=== PATIENT | female | born 1995 | race Caucasian/White ===

== ENCOUNTER 2018-06-17 22:10 | Emergency (ER) | payer OTHER ==
--- OUTSIDE RECORDS SUMMARY | 2018-06-17 22:24 | XMS REPORT | Encounter Summary ---
:1995 Author Reason for Visit sore throat Instructions 1. Acute pharyngitis rapid strep group A, throat Discussion Note RTC for any other concerns Patient educational handouts: No information available. Plan of Care Patient Instructions symptomatic treatment; push fluids and ensure rest Reminders Provider Appointments None recorded. Lab Rapid Strep 05/15/2018 In-House Results Group a, Throat Referral None recorded. Procedures None recorded. Surgeries None recorded. Imaging None recorded. Medications None recorded. Medications Administered None recorded. Vitals Height Weight BMI Blood Pressure 65 in 237 lbs 9 oz 39.5 kg/m2 135/86 mm[Hg] Lab Results None recorded. Allergies Code Code System Name Reaction Severity Status Onset 027352 RxNorm Mobic Hives Moderate Active Problems Name Status Onset Date Source Flank Pain Active Encounter Procedures None recorded. Vaccine List None recorded. 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 History of Present Illness Note: pt to clinic for sore throat, headache, low grade fever x 2 days; she states noted white spots on tonsils; she has taken mucinex cold and flu Review of Systems General Adult ROS Reported By: Patient Constitutional: Constitutional: fever ENMT: Ears: no ear pain. Nose: no nose/sinus problems. Mouth/Throat: sore throat Cardiovascular: Cardiovascular: no chest pain Respiratory: Respiratory: no wheezing, no shortness of breath, cough Gastrointestinal: Gastrointestinal: no abdominal pain, no vomiting, no diarrhea Neurologic: Neurologic: frequent or severe headaches Allergic/Immunologic: Allergy/Immunologic: no runny nose, no sinus pressure Physical Exam Hyacinth Brief Adult Exam - M/F Reported By: Patient Constitutional: General Appearance: healthy-appearing, well-nourished, well-developed. Level of Distress: NAD. Ambulation: ambulating normally Psychiatric: Mental Status: active and alert ENMT: Ears: EACs clear, TMs clear. Nose: nasal passages clear. Oropharynx: moist mucous membranes, no exudates, tonsils not enlarged, erythema Neck: Lymph Nodes: cervical LAD Lungs: Auscultation: breath sounds normal Cardiovascular: Heart Auscultation: RRR, normal S1, normal S2, no murmurs Notes: no sinus tenderness
[2018-06-18 00:01] LABS: Urine Blood NEGATIVE (NEG); Urine Glucose NEGATIVE (NEG); Urine Protein NEGATIVE (NEG); Urine pH 5.5 (5.0-7.0)
[2018-06-18 00:23] LABS: Absolute Lymphocytes (CBC) 2.6 K/uL (0.7-4.9); Absolute Monocytes 0.5 K/uL (0.1-1.3); Absolute Neutrophil 5.2 K/uL (1.8-8.0); Basophils % 0.4 % (0-1.3); Eosinophils % 1.3 % (0-4.4); Hematocrit 42.9 % (36.0-45.0); Lymphocytes % 31.2 % (15.3-44.8); MPV 8.5 fL (7.6-11.3); Monocytes % 6.2 % (3.3-12.3); RBC Red Blood Cell Count 4.62 M/uL (3.86-4.86)
[2018-06-18 00:37] LABS: Albumin 4.2 g/dL (3.4-5.0); Bilirubin Direct 0.1 mg/dL (0-0.2); Bilirubin Total 0.3 mg/dL (0.2-1.0); Potassium 4.1 mmol/L (3.5-5.1)
--- NOTE | 2018-06-18 01:00 | EDPHYS ---
Physician Documentation [facility] Name: Racquel Torres Age: 23 yrs Sex: Female : 1995 Arrival Date: 06/17/2018 Time: 22:18 Bed 28 Private MD: ED Physician Franco Salas HPI: 06/18 00:45 This 23 yrs old Female presents to ER via Ambulatory with complaints of kb Abdominal Pain, pain going to chest. 00:45 The patient presents with abdominal pain in the right upper quadrant. Onset: The kb symptoms/episode began/occurred yesterday. The symptoms do not radiate. Associated signs and symptoms: Pertinent positives: nausea and vomiting, Pertinent negatives: anorexia, blood in stools, chest pain, constipation, diarrhea, dysuria, fever, headache, hematuria, palpitations, shortness of breath, vaginal discharge, vomiting blood. The symptoms are described as constant. Modifying factors: The symptoms are alleviated by nothing, the symptoms are aggravated by nothing. Severity of pain: At its worst the pain was moderate in the emergency department the pain is unchanged. The patient has experienced a previous episode, last year. The patient has not recently seen a physician. [employer]ER[employer]: 06/17 22:30 LMP 06/10/2018 jd3 Historical: - Allergies: 22:30 Mobic; jd3 - Home Meds: 22:30 None [Active]; jd3 - PMHx: 22:30 Migraines; PCOS; Arthritis; jd3 - PSHx: 22:30 None; jd3 - Immunization history:: Adult Immunizations up to date. - Social history:: Smoking status: Patient/guardian denies using tobacco. - Ebola Screening: : Patient negative for fever greater than or equal to 101.5 degrees Fahrenheit, and additional compatible Ebola Virus Disease symptoms. ROS: 06/18 00:43 Constitutional: Negative for fever, chills, and weight loss, ENT: Negative for injury, kb pain, and discharge, Neck: Negative for injury, pain, and swelling, Cardiovascular: Negative for chest pain, palpitations, and edema, Respiratory: Negative for shortness of breath, cough, wheezing, and pleuritic chest pain, Back: Negative for injury and pain, : Negative for injury, bleeding, discharge, and swelling, MS/Extremity: Negative for injury and deformity, Skin: Negative for injury, rash, and discoloration, Neuro: Negative for headache, weakness, numbness, tingling, and seizure. Abdomen/GI: Positive for abdominal pain, nausea and vomiting, Negative for diarrhea, constipation, abdominal cramps, abdominal distension, anorexia. Exam: 00:44 Constitutional: This is a well developed, well nourished patient who is awake, alert, kb and in no acute distress. Head/Face: Normocephalic, atraumatic. Chest/axilla: Normal chest wall appearance and motion. Nontender with no deformity. No lesions are appreciated. Cardiovascular: Regular rate and rhythm with a normal S1 and S2. No gallops, murmurs, or rubs. Normal PMI, no JVD. No pulse deficits. Respiratory: Lungs have equal breath sounds bilaterally, clear to auscultation and percussion. No rales, rhonchi or wheezes noted. No increased work of breathing, no retractions or nasal flaring. Back: No spinal tenderness. No costovertebral tenderness. Full range of motion. Skin: Warm, dry with normal turgor. Normal color with no rashes, no lesions, and no evidence of cellulitis. MS/ Extremity: Pulses equal, no cyanosis. Neurovascular intact. Full, normal range of motion. Neuro: Awake and alert, GCS 15, oriented to person, place, time, and situation. Cranial nerves II-XII grossly intact. Motor strength 5/5 in all extremities. Sensory grossly intact. Cerebellar exam normal. Normal gait. 00:44 Abdomen/GI: Inspection: abdomen appears normal, Bowel sounds: normal, in all quadrants, Palpation: soft, in all quadrants, mild abdominal tenderness, in the epigastric area and right upper quadrant. Vital Signs: 06/17 22:30 BP 114 / 68; Pulse 70; Resp 16 S; Temp 98.3(O); Pulse Ox 100% on R/A; Weight 102.06 kg jd3 (R); Height 5 ft. 5 in. (165.10 cm) (R); Pain 8/10; 06/18 00:00 BP 117 / 65; Pulse 75; Resp 17; Pulse Ox 99% ; rr5 01:30 BP 106 / 60; Pulse 70; Resp 16; Pulse Ox 99% ; rr5 06/17 22:30 Body Mass Index 37.44 (102.06 kg, 165.10 cm) jd3 MDM: 06/17 23:14 Patient medically screened. kb 06/18 00:44 Data reviewed: vital signs, nurses notes. Data interpreted: Pulse oximetry: on room air kb is 99 %. Interpretation: normal. 00:45 Counseling: I had a detailed discussion with the patient and/or guardian regarding: the kb historical points, exam findings, and any diagnostic results supporting the discharge/admit diagnosis, lab results, radiology results, the need for outpatient follow up, a roller maker, to return to the emergency department if symptoms worsen or persist or if there are any questions or concerns that arise at home. 06/17 23:18 Order name: Basic Metabolic Panel; Complete Time: 00:38 kb 06/17 23:18 Order name: CBC with Diff; Complete Time: 00:30 kb 06/17 23:18 Order name: Hepatic Function; Complete Time: 00:38 kb 06/17 23:18 Order name: Lipase; Complete Time: 00:38 kb 06/17 23:56 Order name: Urine Dipstick--Ancillary (enter results); Complete Time: 00:05 ag4 06/17 23:56 Order name: Urine --Ancillary (enter results); Complete Time: 00:05 ag4 06/17 22:40 Order name: US Abdomen Limited kb 06/17 23:18 Order name: IV Saline Lock; Complete Time: 23:59 kb 06/17 23:18 Order name: Labs collected and sent; Complete Time: 23:59 kb 06/17 23:19 Order name: Urine Dipstick-Ancillary (obtain specimen); Complete Time: 23:59 kb Administered Medications: 00:55 Drug: TORadol 30 mg Route: IVP; Site: left antecubital; rr5 01:34 Follow up: Response: No adverse reaction rr5 00:58 Drug: Pepcid 20 mg Route: IVP; Site: left antecubital; rr5 01:34 Follow up: Response: No adverse reaction rr5 Disposition: 12:09 Co-signature as Attending Physician, Franco Salas MD I agree with the assessment and michelle plan of care. Disposition: 06/18/18 00:59 Discharged to Home. Impression: Upper abdominal pain, unspecified. - Condition is Stable. - Discharge Instructions: Abdominal Pain, Adult, [id number]. - Prescriptions for Bentyl 20 mg Oral Tablet - take 1 tablet by ORAL route every 6 hours As needed; 20 tablet. Zofran 4 mg Oral Tablet - take 1 tablet by ORAL route every 6 hours As needed; 20 tablet. - Medication Reconciliation Form, Thank You Letter, Antibiotic Education, Prescription Opioid Use form. - Follow up: Emergency Department; When: As needed; Reason: Worsening of condition. Follow up: Private Physician; When: 2 - 3 days; Reason: Recheck today's complaints, Continuance of care, Re-evaluation by your physician. Signatures: Dispatcher [employer] EDMS Neli Taylor, SUGAR MILL WORKER-C SUGAR MILL WORKER-Ckb Franco Salas MD MD cha Davies, Jonathon RN RN jArjun Vera RN RN rr5 Corrections: (The following items were deleted from the chart) 00:44 00:43 Abdomen/GI: Positive for abdominal pain, Negative for nausea, vomiting, and kb diarrhea, constipation, abdominal cramps, abdominal distension, anorexia, kb 01:35 00:59 06/18/2018 00:59 Discharged to Home. Impression: Upper abdominal pain, rr5 unspecified. Condition is Stable. Forms are Medication Reconciliation Form, Thank You Letter, Antibiotic Education, Prescription Opioid Use. Follow up: Emergency Department; When: As needed; Reason: Worsening of condition. Follow up: Private Physician; When: 2 - 3 days; Reason: Recheck today's complaints, Continuance of care, Re-evaluation by your physician. kb
--- NOTE | 2018-06-18 01:00 | ER ---
Nurse's Notes [facility] Name: Racquel Torres Age: 23 yrs Sex: Female : 1995 Arrival Date: 06/17/2018 Time: 22:18 Bed 28 Private MD: Diagnosis: Upper abdominal pain, unspecified Presentation: 06/17 22:28 Presenting complaint: Patient states: "i am having upper right abdominal pain that jd3 comes up into my arm with nausea and vomiting.". Transition of care: patient was not received from another setting of care. Onset of symptoms was June 15, 2018. Risk Assessment: Do you want to hurt yourself or someone else? Patient reports no desire to harm self or others. Initial Sepsis Screen: Does the patient meet any 2 criteria? No. Patient's initial sepsis screen is negative. Does the patient have a suspected source of infection? No. Patient's initial sepsis screen is negative. Care prior to arrival: None. 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 - Social history:: Smoking status: Patient/guardian denies using tobacco. - Ebola Screening: : Patient negative for fever greater than or equal to 101.5 degrees Fahrenheit, and additional compatible Ebola Virus Disease symptoms. Screenin/06 00:00 Abuse screen: Denies threats or abuse. Denies injuries from another. Nutritional rv screening: No deficits noted. Tuberculosis screening: No symptoms or risk factors identified. Fall Risk None identified. Assessment: 06/17 23:59 General: Appears in no apparent distress. comfortable, Behavior is calm, cooperative. rv Pain: Complains of pain in abdomen. Neuro: Level of Consciousness is awake, alert, obeys commands, Oriented to person, place, time, situation. Cardiovascular: Capillary refill < 3 seconds. Respiratory: Airway is patent. GI: Bowel sounds present X 4 quads. Abd is soft X 4 quads. : No signs and/or symptoms were reported regarding the genitourinary system. EENT: No signs and/or symptoms were reported regarding the EENT system. Derm: Skin is intact. Musculoskeletal: No signs and/or symptoms reported regarding the musculoskeletal system. 06/18 00:35 Reassessment: Patient appears in no apparent distress at this time. Patient is alert, rr5 oriented x 3, equal unlabored respirations, skin warm/dry/pink. awaiting for laboratory report Patient states feeling better. Patient states symptoms have improved. 01:30 Reassessment: Patient appears in no apparent distress at this time. Patient is alert, rr5 oriented x 3, equal unlabored respirations, skin warm/dry/pink. discharge instruction given and explained without complaints made. Patient states feeling better. Patient states symptoms have improved. Vital Signs: 06/17 22:30 BP 114 / 68; Pulse 70; Resp 16 S; Temp 98.3(O); Pulse Ox 100% on R/A; Weight 102.06 kg jd3 (R); Height 5 ft. 5 in. (165.10 cm) (R); Pain 8/10; 06/18 00:00 BP 117 / 65; Pulse 75; Resp 17; Pulse Ox 99% ; rr5 01:30 BP 106 / 60; Pulse 70; Resp 16; Pulse Ox 99% ; rr5 02 22:30 Body Mass Index 37.44 (102.06 kg, 165.10 cm) jd3 ED Course: 06/17 22:18 Patient arrived in ED. es 22:29 Triage completed. jd3 22:31 Arm band placed on. jd3 22:54 Neli Taylor FNP-C [facility] kb 22:54 Franco Salas MD is Attending Physician. kb 23:01 US Abdomen Limited In Process Unspecified. EDMS 23:30 Arjun Vitale RN is Primary Nurse. rr5 23:40 Inserted saline lock: 20 gauge in left antecubital area, using aseptic technique. Blood rr5 collected. 06/18 00:01 Patient has correct armband on for positive identification. Bed in low position. Call rv light in reach. Side rails up X 1. Adult w/ patient. Pulse ox on. NIBP on. 01:33 No provider procedures requiring assistance completed. IV discontinued, intact, rr5 bleeding controlled, No redness/swelling at site. Pressure dressing applied. Administered Medications: 00:55 Drug: TORadol 30 mg Route: IVP; Site: left antecubital; rr5 01:34 Follow up: Response: No adverse reaction rr5 00:58 Drug: Pepcid 20 mg Route: IVP; Site: left antecubital; rr5 01:34 Follow up: Response: No adverse reaction rr5 Outcome: 00:59 Discharge ordered by . lubna 01:33 Discharged to home ambulatory, with family. rr5 01:33 Condition: stable 01:33 Discharge instructions given to patient, Instructed on discharge instructions, follow up and referral plans. medication usage, Demonstrated understanding of instructions, follow-up care, medications, Prescriptions given X 2. 01:35 Patient left the ED. rr5 Signatures: Dispatcher [employer] Neli Khalil, ORCHESTRATOR-C ORCHESTRATOR-Kezia Zhang Jonathon, RN RN jd3 Nikita Lovelace RN RN rv Roque, Raymond, RN RN rr5
[2018-06-18] MEDS ORDERED: KETOROLAC 30 MG/ML INJ ONE (01:02)
[2018-06-18] MEDS ORDERED: FAMOTIDINE 20 MG/2 ML VIAL IV ONE (01:02)
--- NOTE | 2018-06-18 08:20 | RAD REPORT ---
EXAM DESCRIPTION: US - Abdomen Exam Limited - 06/17/2018 11:06 pm CLINICAL HISTORY: ABD PAIN COMPARISON: Abdomen Exam Limited dated 01/30/2017 FINDINGS: The gallbladder demonstrates no gallstones. No pericholecystic fluid or gallbladder wall t hickening. The common bile duct is normal measuring 3 mm. The liver demonstrates no findings of intrahepatic biliary dilatation. IMPRESSION: Unremarkable examination.
== END 2018-06-18 01:35 | disposition home or self-care (01) ==
LOC: ER 22:10
DX: R10.11 Right upper quadrant pain (principal); Z88.5 Allergy status to narcotic agent
CPT/HCPCS: 36415; 76705; 80048; 80076; 81003; 81025; 83690; 85025; 96374; 96375; 99284

== ENCOUNTER → 2018-06-20 | Day surgery (SDC) | payer OTHER ==
[~2018-06-20] MED LIST: LIDOCAINE 1% MPF 5 ML VIAL ONE; PROPOFOL 200 MG/20 ML VIAL IV ONE; Ringers Lactate 1,000 ML IV ONE
--- NOTE | 2018-06-20 11:23 | ENDO RPT ---
[address], [address] EGD PROCEDURE REPORT EXAM DATE: 06/20/2018 PATIENT NAME: Racquel Torres MR#: [id number] BIRTHDATE: 1995 ATTENDING: Primo Ivory DR STATUS: outpatient TRANSFUSION NURSE: Mario Douglass, Abiola Garay RN, and Kayla Douglass INDICATIONS: The patient is a 23 yr old Female here for an EGD due to mid epigastric abdominal pain PROCEDURE PERFORMED: EGD with biopsy for H. pylori MEDICATIONS: Per Anesthesia. TOPICAL ANESTHETIC: none CONSENT: The patient understands the risks and benefits of the procedure and understands that these risks include, but are not limited to: sedation, allergic reaction, infection, perforation and/or bleeding. Alternative means of evaluation and treatment include, among others: physical exam, x-rays, and/or surgical intervention. The patient elects to proceed with this endoscopic procedure. DESCRIPTION OF PROCEDURE: During intra-op preparation period all mechanical medical equipment was checked for proper function. Hand hygiene and appropriate measures for infection prevention was taken. Procedure, possible complications, and alternatives including but not limited to the possibility of bleeding, perforation, tear, infection, sepsis, need for surgery, need for blood transfusion, and anesthesia related complications were explained to the patient. After the risks, benefits and alternatives of the procedure were thoroughly explained, Informed consent was verified, confirmed and timeout was successfully executed by the treatment team. The patient was placed in the left lateral position. The patient was anesthetized with topical anesthesia. Through the anesthetized oropharyngeal area, the scope was passed without any difficulty. The Pentax EG-[id number] ([id number]) endoscope was introduced through the mouth and advanced to the second portion of the duodenum. Retroflexed views revealed no abnormalities. The gastroscope was then slowly withdrawn and removed. Mild gastritis was found at the pylorus. Multiple biopsies were obtained and sent to pathology. A biopsy for H. pylori was taken. Multiple erosions were found at the pylorus. A biopsy for H. pylori was taken. ADVERSE EVENTS: There were no complications. IMPRESSIONS: 1. Mild gastritis was found at the pylorus 2. Multiple erosions were found at the pylorus RECOMMENDATIONS: 1. acid suppression therapy 2. anti-reflux regimen 3. await biopsy results 4. follow-up: office 2 week(s) 5. avoid NSAIDS 6. follow-up of helicobacter pylori status, treat if indicated REPEAT EXAM: Primo Ivory DR eSigned: Primo Ivory DR 06/20/2018 11:00 AM cc: CPT CODES: ICD9 CODES: PATIENT NAME: Racquel TorresSarath MR#: [id number]
== END ==
LOC: OR 07:39
PROVIDERS: ATTEND Surgery
PROC: 0DB78ZX Excision of Stomach, Pylorus, Via Natural or Artificial Opening Endoscopic, Diagnostic (ICD-10-PCS; 2018-06-20)
PROC: 0DB68ZX Excision of Stomach, Via Natural or Artificial Opening Endoscopic, Diagnostic (ICD-10-PCS; 2018-06-20)
PROC: 0DB58ZX Excision of Esophagus, Via Natural or Artificial Opening Endoscopic, Diagnostic (ICD-10-PCS; 2018-06-20)
PROC: 0DB98ZX Excision of Duodenum, Via Natural or Artificial Opening Endoscopic, Diagnostic (ICD-10-PCS; principal; 2018-06-20 10:45)
DX: K29.80 Duodenitis without bleeding (principal); K25.7 Chronic gastric ulcer without hemorrhage or perforation; K29.50 Unspecified chronic gastritis without bleeding; K21.0 Gastro-esophageal reflux disease with esophagitis
CPT/HCPCS: 36415; 84703; 88305; 88312; J2704

== ENCOUNTER 2018-12-22 21:27 | Emergency (ER) | payer OTHER ==
--- NOTE | 2018-12-22 22:28 | EDPHYS ---
Physician Documentation [facility] Name: Racquel Torres Age: 23 yrs Sex: Female : 1995 Arrival Date: 12/22/2018 Time: 21:31 Bed 4 Private MD: ED Physician Grant Bill HPI: 12/22 22:28 This 23 yrs old Female presents to ER via Ambulatory with complaints of tw4 Insect Bite. 22:28 The patient presents with cellulitis of the palmar aspect of left forearm. Description: tw4 The affected area is small. Onset: The symptoms/episode began/occurred yesterday. Possible cause(s): insect sting, spider bite. Associated signs and symptoms: The patient has no apparent associated signs or symptoms, Pertinent negatives:. Severity of symptoms: At their worst the symptoms were mild, in the emergency department the symptoms are unchanged. The patient has not experienced similar symptoms in the past. 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 - Social history:: Smoking status: Patient/guardian denies using tobacco. - Ebola Screening: : No symptoms or risks identified at this time. ROS: 22:28 Constitutional: Negative for fever, chills, and weight loss, Eyes: Negative for injury, tw4 pain, redness, and discharge, Cardiovascular: Negative for chest pain, palpitations, and edema, Respiratory: Negative for shortness of breath, cough, wheezing, and pleuritic chest pain, Abdomen/GI: Negative for abdominal pain, nausea, vomiting, diarrhea, and constipation. 22:28 Skin: Positive for cellulitis, Negative for abscesses. Exam: 22:28 Constitutional: This is a well developed, well nourished patient who is awake, alert, tw4 and in no acute distress. Head/Face: Normocephalic, atraumatic. Chest/axilla: Normal chest wall appearance and motion. Nontender with no deformity. No lesions are appreciated. Cardiovascular: Regular rate and rhythm with a normal S1 and S2. No gallops, murmurs, or rubs. Normal PMI, no JVD. No pulse deficits. Respiratory: Lungs have equal breath sounds bilaterally, clear to auscultation and percussion. No rales, rhonchi or wheezes noted. No increased work of breathing, no retractions or nasal flaring. MS/ Extremity: Pulses equal, no cyanosis. Neurovascular intact. Full, normal range of motion. 22:28 Skin: cellulitis, that is mild, on the palmar aspect of left forearm. Vital Signs: 21:44 BP 126 / 71; Pulse 74; Resp 18; Temp 97.5; Pulse Ox 100% on R/A; Weight 104.33 kg; ea Height 5 ft. 5 in. (165.10 cm); Pain 8/10; 22:00 BP 100 / 50; Pulse 71; Resp 18; Pulse Ox 99% on R/A; jb4 21:44 Body Mass Index 38.27 (104.33 kg, 165.10 cm) ea MDM: 21:38 Patient medically screened. tw4 22:28 Differential diagnosis: cellulitis. Data reviewed: vital signs, nurses notes. tw4 Counseling: I had a detailed discussion with the patient and/or guardian regarding: the historical points, exam findings, and any diagnostic results supporting the discharge/admit diagnosis. Special discussion: I discussed with the patient/guardian in detail that at this point there is no indication for admission to the hospital. It is understood, however, that if the symptoms persist or worsen the patient needs to return immediately for re-evaluation. Administered Medications: 22:35 Drug: Cleocin 300 mg Route: PO; jb4 22:35 Follow up: Response: Medication administered at discharge. jb4 Disposition: 12/22/18 22:27 Discharged to Home. Impression: Cellulitis of left upper limb. - Condition is Stable. - Discharge Instructions: Cellulitis, Adult. - Prescriptions for Cleocin 300 mg Oral Capsule - take 1 capsule by ORAL route every 6 hours for 10 days; 40 capsule. - Medication Reconciliation Form, Thank You Letter, Antibiotic Education, Prescription Opioid Use form. - Follow up: Private Physician; When: Upon discharge from the Emergency Department; Reason: If symptoms return, Recheck today's complaints, Continuance of care. - Problem is new. - Symptoms have improved. Signatures: Ajit Chung RN RN jb4 Esha Hoskins RN RN Grant Newberry MD MD tw4 Corrections: (The following items were deleted from the chart) 22:39 22:27 12/22/2018 22:27 Discharged to Home. Impression: Cellulitis of left upper limb. jb4 Condition is Stable. Forms are Medication Reconciliation Form, Thank You Letter, Antibiotic Education, Prescription Opioid Use. Follow up: Private Physician; When: Upon discharge from the Emergency Department; Reason: If symptoms return, Recheck today's complaints, Continuance of care. Problem is new. Symptoms have improved. tw4
--- NOTE | 2018-12-22 22:28 | ER ---
Nurse's Notes [facility] Name: Racquel Torres Age: 23 yrs Sex: Female : 1995 Arrival Date: 12/22/2018 Time: 21:31 Bed 4 Private MD: Diagnosis: Cellulitis of left upper limb Presentation: 12/22 21:41 Presenting complaint: Patient states: Reports she might have been bit by a spider on ea Saturday. Pt reports she started having severe pain to the area and noticed the redness is spreading. Transition of care: patient was not received from another setting of care. Onset of symptoms was December 22, 2018. Risk Assessment: Do you want to hurt yourself or someone else? Patient reports no desire to harm self or others. Initial Sepsis Screen: Does the patient meet any 2 criteria? No. Patient's initial sepsis screen is negative. Does the patient have a suspected source of infection? No. Patient's initial sepsis screen is negative. Care prior to arrival: None. 21:41 Method Of Arrival: Ambulatory ea 21:41 Acuity: ERICH 4 ea Triage Assessment: 21:45 Bite description: bite sustained to left elbow by a spider. General: Appears in no ea apparent distress. Behavior is appropriate for age. Pain: Complains of pain in left elbow. Neuro: Level of Consciousness is awake, alert, obeys commands, Oriented to person, place, time, situation. Cardiovascular: Patient's skin is warm and dry. Respiratory: Airway is patent Respiratory effort is even, unlabored, Respiratory pattern is regular, symmetrical. 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 - Social history:: Smoking status: Patient/guardian denies using tobacco. - Ebola Screening: : No symptoms or risks identified at this time. Screenin:45 Abuse screen: Denies threats or abuse. Nutritional screening: No deficits noted. ea Tuberculosis screening: No symptoms or risk factors identified. Fall Risk None identified. Assessment: 21:53 General: Appears in no apparent distress. comfortable, Behavior is calm, cooperative, jb4 appropriate for age. Pain: Complains of pain in left elbow Pain does not radiate. Pain currently is 10 out of 10 on a pain scale. Quality of pain is described as sharp, stabbing. Neuro: Level of Consciousness is awake, alert, obeys commands, Oriented to person, place, time, situation. Cardiovascular: Patient's skin is warm and dry. Respiratory: Airway is patent Respiratory effort is even, unlabored, Respiratory pattern is regular, symmetrical. GI: No deficits noted. No signs and/or symptoms were reported involving the gastrointestinal system. : No deficits noted. No signs and/or symptoms were reported regarding the genitourinary system. EENT: No deficits noted. No signs and/or symptoms were reported regarding the EENT system. Derm: Skin is intact, Skin is pink, warm \T\ dry. Red warm raised area noted to the left elbow. Musculoskeletal: Circulation, motion, and sensation intact. Range of motion: intact in all extremities. 22:35 Reassessment: Patient appears in no apparent distress at this time. Patient and/or jb4 family updated on plan of care and expected duration. Pain level reassessed. Patient is alert, oriented x 3, equal unlabored respirations, skin warm/dry/pink. Pt ambulated out of ED with steady gait, with family, verbalized understanding of d/c and follow up instructions. Vital Signs: 21:44 BP 126 / 71; Pulse 74; Resp 18; Temp 97.5; Pulse Ox 100% on R/A; Weight 104.33 kg; ea Height 5 ft. 5 in. (165.10 cm); Pain 8/10; 22:00 BP 100 / 50; Pulse 71; Resp 18; Pulse Ox 99% on R/A; jb4 21:44 Body Mass Index 38.27 (104.33 kg, 165.10 cm) ea ED Course: 21:31 Patient arrived in ED. es 21:36 Ajit Chung, AGUS is Primary Nurse. jb4 21:38 Grant Bill MD is Attending Physician. tw4 21:43 Triage completed. ea 21:43 Patient has correct armband on for positive identification. Bed in low position. Call ea light in reach. Side rails up X2. 21:43 Arm band placed on right wrist. Patient placed in an exam room, on a stretcher, on ea pulse oximetry. 22:38 No provider procedures requiring assistance completed. Patient did not have IV access jb4 during this emergency room visit. Administered Medications: 22:35 Drug: Cleocin 300 mg Route: PO; jb4 22:35 Follow up: Response: Medication administered at discharge. jb4 Outcome: 22:27 Discharge ordered by . tw4 22:38 Discharged to home ambulatory, with family. jb4 22:38 Condition: stable 22:38 Discharge instructions given to patient, family, Instructed on discharge instructions, follow up and referral plans. medication usage, Demonstrated understanding of instructions, follow-up care, medications, Prescriptions given X 1. 22:39 Patient left the ED. jb4 Signatures: Kezia Dotson James, RN RN jb4 Esha Hoskins RN Grant Ramirez ea, MD MD tw4
[2018-12-22] MEDS ORDERED: CLINDAMYCIN HCL 150 MG CAP ONE (22:33)
== END 2018-12-22 22:39 | disposition home or self-care (01) ==
LOC: ER 21:27
DX: L03.114 Cellulitis of left upper limb (principal); E28.2 Polycystic ovarian syndrome
CPT/HCPCS: 99283